=== PATIENT | female | born 2000 | race Caucasian/White ===

== ENCOUNTER 2024-05-31 18:23 | Emergency (ER) | payer SELFPAY ==
[2024-05-31 18:32] VITALS: BP 120/57; PULSE 69; RESP 18; TEMP 36.4; O2SAT 95
--- NOTE | 2024-05-31 18:50 | ED.GENADUL_ITS ---
Discharge Plan Discharge Details Chief Complaint: Orthopedic Primary Care Provider: None,None ED Provider: Zahraa Reynolds Home Meds and New Rx's Prescriptions: No Action albuterol sulfate [Proventil HFA] 6.7 GM HFA aerosol inhaler 1 - 2 puff Inhalation Q4H PRN Qty: 1 (DME) inhalational spacing device [Aerochamber Mini] 1 EACH spacer 1 ea Miscellaneous PRN Qty: 1 Patient Comments: Never filled this rx--11/01/17 er aluminum chloride [Drysol Dab-O-Matic] 35 ML solution 1 charles Topical HS Qty: 35 tretinoin 20 GM cream 1 charles Topical HS Qty: 20 Rx Instructions: apply to back/chest and face as needed for acne clindamycin-benzoyl peroxide [Benzaclin] 25 GM gel 25 gm Topical DAILY Qty: 25 Patient Comments: never filled this rx 11/01/17 er Rx Instructions: Apply to acne on back and face daily. albuterol sulfate [ProAir HFA] 8.5 GM HFA aerosol inhaler 2 puff Inhalation Q4H PRN Qty: 1 Rx Instructions: 2 puffs every 4 hours as needed. Can also take 2 puffs 20 minutes before physical activity. cyproheptadine 4 MG tablet 2 mg PO BID Qty: 30 0RF Rx Instructions: take 1/2 tab PO BID HPI General Date/Time Provider Initiated Documentation: 05/31/24 18:30 . HPI Narrative: Sammie is a 23-year-old female who presents to the emergency department today for evaluation of right shoulder dislocation. She reports that she first dislocated her right shoulder twice during a rugby tournament 3 weeks ago. It spontaneously reduced itself each time with no deficits. [place] the beach, laid back and raised her arms above her head. She felt her shoulder pop out again, this time with a tearing sensation. It popped back in place immediately afterwards. She is reporting mild funny feeling through her right little finger, full sensation and strength in her hand. No history of Kelsey- Danlos or Marfan syndrome in her family, however multiple members of her family have had shoulder dislocations with minimal mechanism of injury. She does not live locally, is visiting from [place] for the week. Physical exam very reassuring. Some discomfort with raising of arm, no pain with empty can test. No obvious deformity or point tenderness. Distal pulses intact. 5 out of 5 muscle strength upper arm, good hand grasp. Sensation intact to all fingers. No numbness to tricep area concerning for axillary nerve injury. History and presentation consistent with repeated shoulder dislocations. X-ray obtained to rule out associated fracture/bony abnormality. Mild anterior subluxation noted by radiologist. Patient was also evaluated by Dr. Bosch likely rotator cuff injury. Humerus is fully within the joint. Reviewed discharge instructions with patient, including importance of orthopedic follow-up, red flags indicate need for return to emergency care importance of wearing sling. She does have one at home, declines sling provided by ED. Related Data Home Medications ?Medication ?Instructions ?Recorded ?Confirmed albuterol sulfate 90 mcg/actuation 1 - 2 puff inhalation Q4H PRN ##1 08/04/16 aerosol inhaler (Proventil HFA) inhalational spacing device ##1 08/04/16 (Aerochamber Mini) aluminum chloride 20 % topical 1 charles topical HS #35 mL 04/20/17 solution (Drysol Dab-O-Matic) albuterol sulfate 90 mcg/actuation 2 puff inhalation Q4H PRN ##1 05/07/17 aerosol inhaler (ProAir HFA) clindamycin 1 %-benzoyl peroxide 5 25 gm topical DAILY #25 grams 05/07/17 % topical gel (Benzaclin) tretinoin 0.025 % topical cream 1 charles topical HS #20 grams 05/07/17 cyproheptadine 4 mg tablet 2 mg (1/2 x 4 mg) PO BID #30 11/19/17 tab-caps Previous Rx's ?Medication ?Instructions ?Recorded cyproheptadine 4 mg tablet 2 mg (1/2 x 4 mg) PO BID #30 11/19/17 tab-caps Allergies Allergy/AdvReac Type Severity Reaction Status Date / Time pollen extracts Allergy Mild Unverified 11/23/17 15:45 General Stated Complaint: Orthopedic ARAM: 4 Review of Systems Narrative: see HPI Exam Const General: cooperative, healthy appearing, comfortable, no acute distress, well developed and well groomed Nutritional Appearance: average body habitus Skin General skin exam: no rashes or lesions noted Neuro Sensory Exam: no sensory deficits noted Extrem Right upper extremity: normal to inspection, full ROM (pain with raising arm), normal capillary refill, no joint enlargement, shoulder/upper arm Details: axillary nerve sensory function normal and abnormal ROM (decreased ROM due to discomfort); no tenderness and no swelling and hand Details: normal to inspection and neuromotor exam normal; no edema Course Vital Signs Vital signs: Vital Signs Temperature 36.4 C L 05/31/24 18:32 Pulse 69 05/31/24 18:32 Respiratory Rate 18 05/31/24 18:32 Blood Pressure 120/57 L 05/31/24 18:32 Pulse Oximetry 95 05/31/24 18:32 Temperature 36.4 C L 05/31/24 18:32 Temperature Source Temporal Artery Scan 05/31/24 18:32 Pulse 69 05/31/24 18:32 Respiratory Rate 18 05/31/24 18:32 Blood Pressure 120/57 L 05/31/24 18:32 Blood Pressure Position Sitting 05/31/24 18:32 Pulse Oximetry 95 05/31/24 18:32 Oxygen Delivery Method Room Air 05/31/24 18:32 Oxygen Flow Rate 0 05/31/24 18:32 Lab/Test Results Lab/Test Results: POC- Test(urine) Negative Medical Decision Making Imaging Data Radiologic Study: Radiologist's impression: FINDINGS: Bones/joints: Bony alignment is grossly anatomic. No acute bony abnormality seen. The glenohumeral articulation is intact. On scapular Y evaluation there appears to be mild anterior subluxation with a shallow glenoid fossa, anatomic variant. Soft tissues: Normal. IMPRESSION: No evidence for fracture. There may be mild anterior subluxation Quality:SDOH Health Related Social Needs: No Data to Display PFSH Medical History Lactose intolerance Acne Surgical History (Updated 08/18/18 @ 14:36 by [employer]) Tonsillectomy Family History Mother Mental disorder anxiety/depression Father Hyperhidrosis Essential hypertension Other Personal history of malignant neoplasm PGM-breast Stroke PGF Social History Smoking/Tobacco Use Status: Never Smoking risk assessment performed?: Yes Alcohol Intake: never Drug use: Never Substance use type: does not use Housing: apartment Do you feel safe at home: Yes Do you feel safe in your relationship?: Yes
--- NOTE | 2024-05-31 20:02 | DI.RAD_ITS ---
Exam(s) XR SHOULDER RT COMPLETE 2+V EXAM: XR SHOULDER RT COMPLETE 2+V CLINICAL HISTORY: multiple dislocations with spontaneous reductions. TECHNIQUE: 2D digital imaging was performed. Five views. COMPARISON: No exams were available for comparison FINDINGS: BONES: No acute fracture is present. No bony destructive lesion is seen. JOINTS: No dislocation present. SOFT TISSUE: Normal. IMPRESSION: Unremarkable radiographs of the right shoulder. DATA REPOSITORY: RADIATION DOSE DELIVERED:
--- NOTE | 2024-05-31 20:18 | DI.VRAD_ITS ---
PROCEDURE INFORMATION: Exam: XR Right Shoulder Exam date and time: 05/31/2024 7:16 PM Age: 23 years old Clinical indication: Other: Multiple dislocations with spontaneous reductions TECHNIQUE: Imaging protocol: Radiologic exam of the right shoulder. Views: 2 or more views. COMPARISON: CR CHEST 2 VIEWS PA,LAT 11/01/2017 5:42 PM FINDINGS: Bones/joints: Bony alignment is grossly anatomic. No acute bony abnormality seen. The glenohumeral articulation is intact. On scapular Y evaluation there appears to be mild anterior subluxation with a shallow glenoid fossa, anatomic variant. Soft tissues: Normal. IMPRESSION: No evidence for fracture. There may be mild anterior subluxation. Dictated and Authenticated by: Raissa Ambriz MD. Ordering:SILVER Vital MD
== END 2024-05-31 21:11 | disposition home or self-care (01) ==
PROVIDERS: Emergency Provider Nurse Practitioner Family
DX: M24.411 Recurrent dislocation, right shoulder (principal)
CPT/HCPCS: 81025; 99283; 73030